=== PATIENT | male | born 1990 | race Caucasian/White ===

== ENCOUNTER → 2016-09-08 09:55 | Outpatient (CLI) | payer MEDICAID | END | disposition home or self-care (01) | LOC: D.CN 08-29 10:00 | DX: R56.9 Unspecified convulsions (principal) ==

== ENCOUNTER 2018-03-06 17:46 | Emergency (ER) | payer MEDICAID ==
[~2018-03-06] VITALS: Ht 180.3 cm; Wt 87.3 kg
[2018-03-06 17:47] VITALS: Ht 180.3 cm; Wt 87.3 kg
[2018-03-06] MEDS ORDERED: SUMATRIPTAN SUC25 MG PO (17:50)
[2018-03-06] MEDS ORDERED: KEPPRA1000 MG PO (17:51)
[2018-03-06] MEDS ORDERED: ELAVIL25 MG PO (17:51)
[2018-03-06] MEDS ORDERED: KLONOPIN0.5 MG PO (17:52)
[2018-03-06] MEDS ORDERED: AMITRIPTYLINE H50 MG PO (17:53)
[2018-03-06 20:01] VITALS: BP 120/78
[2018-03-07] MEDS ORDERED: FLUTICASONE PRO16 GM (18:13)
== END 2018-03-06 20:02 | disposition home or self-care (01) ==
LOC: D.ER 17:46
DX: Z87.820 Personal history of traumatic brain injury (principal); G40.909 Epilepsy, unspecified, not intractable, without status epilepticus; F17.200 Nicotine dependence, unspecified, uncomplicated

== ENCOUNTER 2018-03-07 18:11 | Emergency (ER) | payer MEDICAID ==
[~2018-03-07] VITALS: Ht 180.3 cm; Wt 87.3 kg
[~2018-03-07 18:11] MED LIST: AMITRIPTYLINE H50 MG PO; ELAVIL25 MG PO; KEPPRA1000 MG PO; KLONOPIN0.5 MG PO; SUMATRIPTAN SUC25 MG PO
[2018-03-07 18:12] VITALS: Ht 180.3 cm; Wt 87.3 kg
[2018-03-07] MEDS ORDERED: FLUTICASONE PRO16 GM (18:13)
[2018-03-07 19:03] LABS: BASOPHILS 0.3 % (0-2); EOSINOPHILS 1.2 % (0-7); HEMATOCRIT 41.7 % (42.0-54.0); HEMOGLOBIN 15.4 g/dL (13.5-17.5); IMMATURE GRANULOCYTES 0.4 % (0-5); LYMPHOCYTES 16.7 % (15-50); MCH 31.2 pg (26.0-34.0); MCHC 36.9 g/dL (31.0-37.0); MCV 84.4 fL (80.0-100.0); MEAN PLATELET VOLUME 10.4 fL (7.4-10.4); MONOCYTES 8.7 % (2-11); NEUTROPHILS 72.7 % (40-80); PLATELET COUNT 189 10x3/uL (130-400); RBC 4.94 10x6/uL (4.20-6.10); RDW 12.5 % (11.5-14.5); WBC 7.7 10x3/uL (4.8-10.8)
[2018-03-07 19:29] LABS: ALBUMIN 3.8 g/dL (3.4-5.0); ALKALINE PHOSPHATASE 73 U/L (46-116); ALT (SGPT) 47 U/L (10-68); BILIRUBIN - TOTAL 1.46 mg/dL (0.2-1.3); CALC OSMOLALITY 289 mosm/kg (275-300); CALCIUM 9.3 mg/dL (8.5-10.1); CHLORIDE - SERUM 108 mmol/L (98-107); CREATININE - SERUM 0.9 mg/dL (0.6-1.3); GLUCOSE 117 mg/dL (74-106); POTASSIUM - SERUM 3.9 mmol/L (3.5-5.1); PROTEIN - SERUM 6.6 g/dL (6.4-8.2); SODIUM 145 mmol/L (136-145); UREA NITROGEN 13 mg/dL (7-18); eGFR NON AFRICAN AMERICAN > 90 mL/min (90-120)
[2018-03-07 19:46] LABS: UDS - AMPHET NEGATIVE QUAL (NEGATIVE); UDS - BARB NEGATIVE QUAL (NEGATIVE); UDS - BENZO NEGATIVE QUAL (NEGATIVE); UDS - COCAINE NEGATIVE QUAL (NEGATIVE); UDS - OPIATE NEGATIVE QUAL (NEGATIVE); UDS - PCP NEGATIVE QUAL (NEGATIVE); UDS - THC NEGATIVE QUAL (NEGATIVE)
[2018-03-07 20:23] LABS: APPEARANCE HAZY (CLEAR); BILIRUBIN NEGATIVE (NEGATIVE); COLOR YELLOW (YELLOW); GLUCOSE NEGATIVE (NEGATIVE); KETONE NEGATIVE (NEGATIVE); NITRITE NEGATIVE (NEGATIVE); PROTEIN NEGATIVE (NEGATIVE); UROBILINOGEN NORMAL (NORMAL)
[2018-03-07 21:18] VITALS: BP 135/76
== END 2018-03-07 21:18 | disposition home or self-care (01) ==
LOC: D.ER 18:11
PROVIDERS: Emergency Medicine
DX: G40.909 Epilepsy, unspecified, not intractable, without status epilepticus (principal); Z86.69 Personal history of other diseases of the nervous system and sense organs; Z87.820 Personal history of traumatic brain injury; F17.200 Nicotine dependence, unspecified, uncomplicated

== ENCOUNTER 2018-05-18 20:01 | Emergency (ER) | payer MEDICAID ==
[~2018-05-18] VITALS: Ht 180.3 cm; Wt 86.4 kg
[~2018-05-18 20:01] MED LIST changes: +FLUTICASONE PRO16 GM
[2018-05-18 20:06] VITALS: Ht 180.3 cm; Wt 86.4 kg
[2018-05-18 21:11] VITALS: BP 126/80
== END 2018-05-18 21:11 | disposition home or self-care (01) ==
LOC: D.ER 20:01
DX: J01.90 Acute sinusitis, unspecified (principal); R04.0 Epistaxis; Z87.820 Personal history of traumatic brain injury; F17.200 Nicotine dependence, unspecified, uncomplicated

== ENCOUNTER 2019-03-04 21:25 | Emergency (ER) | payer MEDICAID ==
[~2019-03-04] VITALS: Ht 180.3 cm; Wt 81.8 kg
[2019-03-04 21:30] VITALS: Ht 180.3 cm; Wt 81.8 kg
[2019-03-04 22:12] LABS: BASOPHILS 0.4 % (0-2); EOSINOPHILS 2.4 % (0-7); HEMATOCRIT 43.8 % (42.0-54.0); HEMOGLOBIN 15.5 g/dL (13.5-17.5); IMMATURE GRANULOCYTES 0.2 % (0-5); LYMPHOCYTES 32.1 % (15-50); MCH 32.3 pg (26.0-34.0); MCHC 35.4 g/dL (31.0-37.0); MCV 91.3 fL (80.0-100.0); MEAN PLATELET VOLUME 10.4 fL (7.4-10.4); MONOCYTES 8.9 % (2-11); PLATELET COUNT 235 10x3/uL (130-400); RDW 13.2 % (11.5-14.5); WBC 5.1 10x3/uL (4.8-10.8)
[2019-03-04 22:31] LABS: ALBUMIN 3.7 g/dL (3.4-5.0); ALKALINE PHOSPHATASE 95 U/L (46-116); ALT (SGPT) 39 U/L (10-68); CALC OSMOLALITY 288 mosm/kg (275-300); CARBON DIOXIDE 30.8 mmol/L (21.0-32.0); CHLORIDE - SERUM 108 mmol/L (98-107); CREATININE - SERUM 0.9 mg/dL (0.6-1.3); GLUCOSE 105 mg/dL (74-106); POTASSIUM - SERUM 3.9 mmol/L (3.5-5.1); PROTEIN - SERUM 6.9 g/dL (6.4-8.2); SODIUM 146 mmol/L (136-145); UREA NITROGEN 8 mg/dL (7-18); eGFR NON AFRICAN AMERICAN > 90 mL/min (90-120)
[2019-03-04 22:33] LABS: LIPASE 139 U/L (73-393); TROPONIN-I < 0.017 ng/mL (0.000-0.060)
[2019-03-04 23:36] LABS: APPEARANCE CLEAR (CLEAR); COLOR YELLOW (YELLOW); GLUCOSE NEGATIVE (NEGATIVE); NITRITE NEGATIVE (NEGATIVE); PROTEIN NEGATIVE (NEGATIVE); SPECIFIC GRAVITY 1.015 (1.005-1.020)
[2019-03-04 23:37] LABS: BILIRUBIN NEGATIVE (NEGATIVE); KETONE NEGATIVE (NEGATIVE)
[2019-03-05] MEDS ORDERED: LOMOTIL 2.5-0.1 EAC1 PO (00:56)
[2019-03-05] MEDS ORDERED: BENTYL10 MG PO (00:56)
[2019-03-05] MEDS ORDERED: ZOFRAN ODT4 MG/UDTAB PO (00:56)
[2019-03-05 01:30] VITALS: BP 120/65
== END 2019-03-05 01:30 | disposition home or self-care (01) ==
LOC: D.ER 21:25
PROVIDERS: Family Medicine
DX: K52.9 Noninfective gastroenteritis and colitis, unspecified (principal)

== ENCOUNTER 2019-03-07 13:51 | Emergency (ER) | payer MEDICAID ==
[~2019-03-07] VITALS: Ht 180.3 cm; Wt 81.8 kg
[~2019-03-07 13:51] MED LIST changes: +BENTYL10 MG PO; +LOMOTIL 2.5-0.1 EAC1 PO; +ZOFRAN ODT4 MG/UDTAB PO
[2019-03-07 14:25] VITALS: Ht 180.3 cm; Wt 81.8 kg
[2019-03-07 17:53] VITALS: BP 116/79
== END 2019-03-07 17:50 | disposition home or self-care (01) ==
LOC: D.ER 13:51
DX: G43.909 Migraine, unspecified, not intractable, without status migrainosus (principal); F17.200 Nicotine dependence, unspecified, uncomplicated

== ENCOUNTER 2019-03-08 19:09 | Emergency (ER) | payer MEDICAID ==
[~2019-03-08] VITALS: Ht 180.3 cm; Wt 81.8 kg
[2019-03-08 19:23] VITALS: Ht 180.3 cm; Wt 81.8 kg
[2019-03-08 21:02] VITALS: BP 104/63
== END 2019-03-08 21:02 | disposition home or self-care (01) ==
LOC: D.ER 19:09
DX: G43.909 Migraine, unspecified, not intractable, without status migrainosus (principal); Z87.820 Personal history of traumatic brain injury; F17.210 Nicotine dependence, cigarettes, uncomplicated

== ENCOUNTER 2019-08-26 15:43 | Emergency (ER) | payer MEDICAID ==
[~2019-08-26] VITALS: Ht 177.8 cm; Wt 90.9 kg
[2019-08-26 15:47] VITALS: Ht 177.8 cm; Wt 90.9 kg
[2019-08-26] MEDS ORDERED: NEURONTIN 300300 MG PO (15:52)
[2019-08-26] MEDS ORDERED: KLONOPIN0.5 MG PO (15:52)
[2019-08-26 16:15] LABS: BASOPHILS 0.2 % (0-2); EOSINOPHILS 1.3 % (0-7); HEMATOCRIT 44.5 % (42.0-54.0); HEMOGLOBIN 15.9 g/dL (13.5-17.5); IMMATURE GRANULOCYTES 0.3 % (0-5); LYMPHOCYTES 27.5 % (15-50); MCH 31.1 pg (26.0-34.0); MCHC 35.7 g/dL (31.0-37.0); MCV 87.1 fL (80.0-100.0); MEAN PLATELET VOLUME 10.5 fL (7.4-10.4); MONOCYTES 11.6 % (2-11); NEUTROPHILS 59.1 % (40-80); PLATELET COUNT 256 10x3/uL (130-400); RBC 5.11 10x6/uL (4.20-6.10); RDW 12.7 % (11.5-14.5); WBC 6.3 10x3/uL (4.8-10.8)
[2019-08-26 16:16] LABS: APTT 27.7 SECONDS (22.8-39.4); PROTIME 13.2 SECONDS (11.6-15.0)
[2019-08-26 16:25] LABS: CALC OSMOLALITY 276 mosm/kg (275-300); CALCIUM 8.7 mg/dL (8.5-10.1); CHLORIDE - SERUM 106 mmol/L (98-107); CREATININE - SERUM 0.9 mg/dL (0.6-1.3); GLUCOSE 98 mg/dL (74-106); POTASSIUM - SERUM 3.8 mmol/L (3.5-5.1); SODIUM 139 mmol/L (136-145); UREA NITROGEN 11 mg/dL (7-18); eGFR NON AFRICAN AMERICAN > 90 mL/min (90-120)
[2019-08-26 16:44] LABS: ALBUMIN 3.7 g/dL (3.4-5.0); ALKALINE PHOSPHATASE 99 U/L (30-120); ALT (SGPT) 61 U/L (10-68); BILIRUBIN - TOTAL 1.58 mg/dL (0.2-1.3); CKMB 0.5 U/L (0.0-3.6); CREATINE KINASE 69 UL (21-232)
[2019-08-26 16:48] LABS: TROPONIN-I < 0.017 ng/mL (0.000-0.060)
[2019-08-26 17:11] LABS: C-REACTIVE PROTEIN 0.4 mg/dL (0.0-0.9)
[2019-08-26] MEDS ORDERED: DURAFLU 325-201 EACH PO (17:22)
[2019-08-26] MEDS ORDERED: FLUTICASONE PRO16 GM NASAL (17:22)
[2019-08-26] MEDS ORDERED: ZYRTEC10 MG PO (17:22)
[2019-08-26 18:25] VITALS: BP 125/80
== END 2019-08-26 18:25 | disposition home or self-care (01) ==
LOC: D.ER 15:43
PROVIDERS: Family Medicine
DX: J30.9 Allergic rhinitis, unspecified (principal); R05 Cough; R07.9 Chest pain, unspecified; Z72.0 Tobacco use

== ENCOUNTER → 2019-10-05 10:43 | Outpatient (CLI) | payer MEDICAID ==
[2019-08-26 15:47] VITALS: BMI 28.7
[~2019-10-05 10:43] MED LIST changes: +DURAFLU 325-201 EACH PO; +FLUTICASONE PRO16 GM NASAL; +NEURONTIN 300300 MG PO; +ZYRTEC10 MG PO
== END | disposition home or self-care (01) ==
LOC: D.RAD 10:43
PROVIDERS: ATTEND Nurse Practitioner
DX: M25.572 Pain in left ankle and joints of left foot (principal)